=== PATIENT | female | born 1985 | race American Indian/Alaskan Native ===

== ENCOUNTER 2016-06-24 11:35 | Emergency (ER) | payer MEDICARE ==
[2016-06-24 12:32] LABS: Urine Drugs of Abuse Note Disclamer
[2016-06-24 12:39] LABS: Basophils % (Auto) 0.4 % (0.0-1.8); Eosinophils % (Auto) 2.4 % (0.0-4.3); Hematocrit 39.8 % (30.3-42.9); Hemoglobin 13.3 gm/dl (10.1-14.3); Mean Corpuscular HGB Conc 33 % (30-34); Mean Corpuscular Hemoglobin 31 pg (28-32); Mean Corpuscular Volume 92 fl (79-97); Platelet Count 262 K/mm3 (140-440); Red Blood Count 4.33 M/mm3 (3.65-5.03); Red Cell Distribution Width 13.4 % (13.2-15.2); White Blood Count 9.2 K/mm3 (4.5-11.0)
[2016-06-24 12:43] LABS: Bilirubin,Urine NEG (Negative); Blood,Urine NEG (Negative); Ketones,Urine NEG (Negative); Leukocyte Esterase,Urine LG (Negative); Mucus,Urine FEW /HPF; Nitrite,Urine NEG (Negative); Urobilinogen,Urine < 2.0 mg/dL (<2.0)
[2016-06-24 12:46] LABS: Anion Gap 19 mmol/L; Blood Urea Nitrogen 6 mg/dL (7-17); Calcium 8.6 mg/dL (8.4-10.2); Carbon Dioxide 24 mmol/L (22-30); Chloride 99.7 mmol/L (98-107); Glucose 124 mg/dL (65-100); Potassium 3.5 mmol/L (3.6-5.0); Sodium 139 mmol/L (137-145)
--- NOTE | 2016-06-24 13:36 | Emergency Department Report ---
HPI - General Chief Complaint: Psych Time Seen by Provider: 06/24/16 12:20 - HPI HPI: Chief complaint: I think that I'm HPI: Patient is 30-year-old female with a history of schizophrenia states she has been at [facility] for the last 5 days after being at [facility]. Patient states she's been nauseated and thinks that she might be . Patient has been 2 and has had one miscarriage and one . Mode of arrival: [EMS] Source: [Patient] and nursing notes Began: The last several days Duration: Several days Context: See above Quality: Mild suprapubic discomfort Severity: Mild Improved with: Nothing Worsened with: Nothing Associated signs and symptoms: See above ED Past Medical Hx - Past Medical History Previous Medical History?: Yes Hx Psychiatric Treatment: Yes (BIPOLAR) - Surgical History Past Surgical History?: No - Social History Smoking Status: Current Every Day Smoker Substance Use Type: Alcohol, Prescribed - Medications Home Medications: Home Medications Medication Instructions Recorded Confirmed Last Taken Type OXcarbazepine [Trileptal] 300 mg PO BID 02/23/16 06/24/16 02/23/16 09:00 History 300 MG Olanzapine [ZyPREXA] 20 mg PO QDAY 06/24/16 06/24/16 Unknown History lamoTRIgine [LaMICtal] 25 mg PO QDAY 06/24/16 06/24/16 Unknown History ED Review of Systems ROS: Stated complaint: SUICIDAL/PARANOID Other details as noted in HPI ROS Constitutional: No fever ENT: No uri symptoms Cardiovascular: No chest pain Respiratory: No sob or cough GI: No nausea vomiting or diarrhea : No dysuria frequency or urgency, Skin: No rash Neuro: No focal weakness or numbness Psych: Schizophrenia Roman/lymph: No edema Physical Exam - Physical Exam Vital Signs: Vital Signs 06/24/16 06/24/16 11:53 12:38 Temperature 98.8 F Pulse Rate 122 H Respiratory 20 20 Rate Blood Pressure 148/96 O2 Sat by Pulse 98 99 Oximetry Physical Exam: GENERAL: The patient is well-developed well-nourished . HEENT: Normocephalic. Atraumatic. Extraocular motions are intact. Patient has moist mucous membranes. NECK: Supple. No meningitic signs are noted. There is no adenopathy noted. CHEST/LUNGS: Clear to auscultation. There is no respiratory distress noted. HEART/CARDIOVASCULAR: Regular. There is no tachycardia. There is no gallop rub or murmur. ABDOMEN: Abdomen is soft, nontender. Patient has normal bowel sounds. There is no abdominal distention. SKIN: There is no rash. There is no edema. There is no diaphoresis. NEURO: The patient is awake, alert, and oriented. The patient is cooperative. The patient has no focal neurologic deficits. The patient has normal speech. MUSCULOSKELETAL: There is no tenderness or deformity. There is no limitation range of motion. There is no evidence of acute injury. ED Course Vital Signs 06/24/16 06/24/16 11:53 12:38 Temperature 98.8 F Pulse Rate 122 H Respiratory 20 20 Rate Blood Pressure 148/96 O2 Sat by Pulse 98 99 Oximetry ED Medical Decision Making - Lab Data Result diagrams: 06/24/16 12:13 06/24/16 12:13 Laboratory Tests 06/24/16 06/24/16 06/24/16 12:10 12:10 12:13 Urine HCG, Qual Negative Urine Opiates Screen Presumptive negative Urine Methadone Screen Presumptive negative Ur Barbiturates Screen Presumptive negative Ur Phencyclidine Scrn Presumptive negative Ur Amphetamines Screen Presumptive negative U Benzodiazepines Scrn Presumptive negative Urine Cocaine Screen Presumptive negative U Marijuana (THC) Screen Presumptive negative Plasma/Serum Alcohol < 0.01 Critical care attestation.: If time is entered above; I have spent that time in minutes in the direct care of this critically ill patient, excluding procedure time. ED Disposition Clinical Impression: Medical clearance for psychiatric admission Schizophrenia Qualifiers: Schizophrenia type: unspecified Qualified Code(s): F20.9 - Schizophrenia, unspecified Disposition: DC/TX PSY HOSP/PSY UNIT Is pt being admited?: No Does the pt Need Aspirin: No Condition: Stable Additional Instructions: Transfer back to [facility] [place] as the patient is not and continue her psychiatric care Referrals: ROWDY DE LEON MD [Primary Care Provider] - 3-5 Days Time of Disposition: 13:36
[2016-06-24 19:36] VITALS: BP 132/85
== END 2016-06-24 20:40 ==
LOC: EEVIPCON 11:35 → ED 11:35
DX: F20.9 Schizophrenia, unspecified (principal); F31.9 Bipolar disorder, unspecified; F17.200 Nicotine dependence, unspecified, uncomplicated
CPT/HCPCS: 36415; 80048; 80307; 81001; 81025; 85025; 99285; G0480; 80320

== ENCOUNTER 2016-07-19 07:08 | Emergency (ER) | payer MEDICARE ==
[2016-07-19 07:42] VITALS: BP 123/87
[2016-07-19 09:33] LABS: Bilirubin,Urine NEG (Negative); Blood,Urine NEG (Negative); Ketones,Urine 20 mg/dL (Negative); Leukocyte Esterase,Urine SM (Negative); Mucus,Urine 2+ /HPF; Nitrite,Urine NEG (Negative); Protein,Urine <15 mg/dL mg/dL (Negative); Urobilinogen,Urine < 2.0 mg/dL (<2.0)
--- NOTE | 2016-07-19 10:15 | Emergency Department Report ---
HPI - General Chief Complaint: Urogenital-Female Time Seen by Provider: 07/19/16 08:17 - HPI HPI: 30-year-old female presents today stating that she needs a Pap smear. Patient states that she was diagnosed with a UTI per primary care provider a few days ago and was not put on treatment. Patient will try to be treated for her UTI. Denies any burning upon urination, blood in her urine, increased urinary frequency or urgency, vaginal discharge. Denies fever, chills, nausea, vomiting , chest pain, shortness of breath, abdominal pain. Patient states her last menstrual period was 06/29/2016. ED Past Medical Hx - Past Medical History Previous Medical History?: Yes Hx Hypertension: No Hx Heart Attack/AMI: No Hx Congestive Heart Failure: No Hx Diabetes: No Hx Deep Vein Thrombosis: No Hx Pulmonary Embolism: No Hx Liver Disease: No Hx Renal Disease: No Hx Sickle Cell Disease: No Hx Arthritis: No Hx Seizures: No Hx Kidney Stones: No Hx Psychiatric Treatment: Yes (BIPOLAR) Hx Asthma: No Hx COPD: No Hx Tuberculosis: No Hx Dementia: No Hx HIV: No - Surgical History Hx Coronary Stent: No Hx Open Heart Surgery: No Hx Pacemaker: No Hx Internal Defibrillator: No Hx Cholecystectomy: No Hx Appendectomy: No Hx Breast Surgery: No - Social History Smoking Status: Former Smoker Substance Use Type: None - Medications Home Medications: Home Medications Medication Instructions Recorded Confirmed Last Taken Type OXcarbazepine [Trileptal] 300 mg PO BID 02/23/16 06/24/16 02/23/16 09:00 History 300 MG Olanzapine [ZyPREXA] 20 mg PO QDAY 06/24/16 06/24/16 Unknown History lamoTRIgine [LaMICtal] 25 mg PO QDAY 06/24/16 06/24/16 Unknown History Nitrofurantoin [place]/M-Cryst 100 mg PO Q12HR #10 capsule 07/19/16 Unknown Rx [Macrobid CAP] ED Review of Systems ROS: Stated complaint: POSS UTERUS CRAMPING Other details as noted in HPI Constitutional: denies: chills, fever, malaise Eyes: denies: eye pain ENT: denies: ear pain, throat pain, congestion Respiratory: denies: cough, shortness of breath, wheezing Cardiovascular: denies: chest pain, palpitations Endocrine: no symptoms reported Gastrointestinal: denies: abdominal pain, nausea, vomiting Genitourinary: denies: urgency, dysuria, frequency, hematuria, discharge Neurological: denies: headache, weakness Physical Exam - Physical Exam Vital Signs: Vital Signs 07/19/16 07:36 Temperature 98.3 F Pulse Rate 87 Respiratory 18 Rate Blood Pressure 123/87 O2 Sat by Pulse 100 Oximetry Physical Exam: GENERAL: The patient is well-developed and well-nourished. Patient is in NAD. HEAD: Normocephalic. Atraumatic. CHEST/LUNGS: Clear to auscultation throughout. HEART/CARDIOVASCULAR: Regular rate and rhythm. No murmurs, rubs or gallops. ABDOMEN: Abdomen is soft, nontender. Bowel sounds normoactive. No guarding or rebound tenderness. Negative for CVA tenderness bilaterally. EXTREMITIES: Peripheral pulses intact. Capillary refill less than 2 seconds. NEURO: Alert and oriented x 3. Normal gait. ED Course Vital Signs 07/19/16 07:36 Temperature 98.3 F Pulse Rate 87 Respiratory 18 Rate Blood Pressure 123/87 O2 Sat by Pulse 100 Oximetry ED Medical Decision Making - Lab Data Vital Signs 07/19/16 07:36 Temperature 98.3 F Pulse Rate 87 Respiratory 18 Rate Blood Pressure 123/87 O2 Sat by Pulse 100 Oximetry - Medical Decision Making 30-year-old female presents today to be treated for a UTI. Her urine test is negative and her urinalysis reveals small leukocyte esterase. Patient is requesting antibiotics to go home on. Patient is in no acute distress at this time. She will be discharged home and is encouraged to follow up with a primary care provider. She will be sent home on Macrobid and is encouraged to return to the emergency room for any worsening symptoms. Critical care attestation.: If time is entered above; I have spent that time in minutes in the direct care of this critically ill patient, excluding procedure time. ED Disposition Clinical Impression: UTI (urinary tract infection) Qualifiers: Urinary tract infection type: acute cystitis Hematuria presence: without hematuria Qualified Code(s): N30.00 - Acute cystitis without hematuria Disposition: DISCHARGED TO HOME OR SELFCARE Is pt being admited?: No Does the pt Need Aspirin: No Condition: Stable Instructions: Urinary Tract Infection in Women (ED) Additional Instructions: Follow-up with primary care provider. Return to the emergency department if symptoms worsen. Prescriptions: Nitrofurantoin [place]/M-Cryst [Macrobid CAP] 100 mg PO Q12HR #10 capsule Referrals: STAN ARTHUR MD [Primary Care Provider] - 3-5 Days GÉNESIS SYKES MD [Staff Physician] - 3-5 Days Forms: Work/School Release Form(ED) Time of Disposition: 10:17
== END 2016-07-19 10:26 | disposition home or self-care (01) ==
LOC: ED 07:08
DX: N30.00 Acute cystitis without hematuria (principal); N39.0 Urinary tract infection, site not specified; F31.9 Bipolar disorder, unspecified; Z87.891 Personal history of nicotine dependence
CPT/HCPCS: 81001; 81025; 99283

== ENCOUNTER 2016-07-19 21:35 | Emergency (ER) | payer MEDICARE ==
[2016-07-19 22:43] LABS: Basophils % (Auto) 0.3 % (0.0-1.8); Eosinophils % (Auto) 2.5 % (0.0-4.3); Hematocrit 41.6 % (30.3-42.9); Hemoglobin 13.8 gm/dl (10.1-14.3); Mean Corpuscular HGB Conc 33 % (30-34); Mean Corpuscular Hemoglobin 31 pg (28-32); Mean Corpuscular Volume 93 fl (79-97); Platelet Count 274 K/mm3 (140-440); Red Blood Count 4.48 M/mm3 (3.65-5.03); Red Cell Distribution Width 13.3 % (13.2-15.2); White Blood Count 13.4 K/mm3 (4.5-11.0)
[2016-07-19 22:45] LABS: Alanine Aminotransferase 14 units/L (7-56); Albumin 4.1 g/dL (3.9-5); Albumin/Globulin Ratio 1.1 %; Alkaline Phosphatase 111 units/L (35-129); Anion Gap 20 mmol/L; Bilirubin,Total 0.4 mg/dL (0.1-1.2); Blood Urea Nitrogen 7 mg/dL (7-17); Calcium 8.9 mg/dL (8.4-10.2); Carbon Dioxide 22 mmol/L (22-30); Chloride 99.4 mmol/L (98-107); Glucose 104 mg/dL (65-100); Sodium 137 mmol/L (137-145)
[2016-07-19 23:20] LABS: Urine Drugs of Abuse Note Disclamer
--- NOTE | 2016-07-19 23:33 | Emergency Department Report ---
HPI - General Chief Complaint: Medical Clearance Time Seen by Provider: 07/19/16 22:08 - HPI HPI: This is a 30-year-old -Azerbaij[place] female presents to the emergency department by EMS with complaint of insomnia and medication noncompliance. The patient has a history of bipolar schizoaffective. The patient complains of insomnia saying that she has not had any sleep over the past 2 days. She says that she normally is on Lamictal, trazodone, Geodon and Seroquel but has not been able to take them cut she has run out. The patient was recently at a hospital for her psychiatric symptoms and then [facility]. [place] to bring her here for further evaluation. The nurse called over to the lodge and spoke with the person who is in charge and says that this patient has been eloping from there over the past few days and has been found around the city just wandering around. She currently denies any suicidal or homicidal ideations or any auditory or visual hallucinations. 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 - Surgical History Hx Coronary Stent: No Hx Open Heart Surgery: No Hx Pacemaker: No Hx Internal Defibrillator: No Hx Cholecystectomy: No Hx Appendectomy: No Hx Breast Surgery: No - Social History Smoking Status: Never Smoker - Medications Home Medications: Home Medications Medication Instructions Recorded Confirmed Last Taken Type OXcarbazepine [Trileptal] 300 mg PO BID 02/23/16 07/19/16 02/23/16 09:00 History 300 MG Olanzapine [ZyPREXA] 20 mg PO QDAY 06/24/16 07/19/16 Unknown History lamoTRIgine [LaMICtal] 25 mg PO QDAY 06/24/16 07/19/16 Unknown History ED Review of Systems ROS: Stated complaint: MH EVAL Other details as noted in HPI Comment: All other systems reviewed and negative Constitutional: denies: chills, fever Eyes: denies: eye pain, eye discharge, vision change ENT: denies: ear pain, throat pain Respiratory: denies: cough, shortness of breath, wheezing Cardiovascular: denies: chest pain, palpitations Gastrointestinal: denies: abdominal pain, nausea, diarrhea Genitourinary: denies: urgency, dysuria, discharge Musculoskeletal: denies: back pain, joint swelling, arthralgia Skin: denies: rash, lesions Neurological: denies: headache, weakness, paresthesias Psychiatric: denies: auditory hallucinations, visual hallucinations, homicidal thoughts, suicidal thoughts Physical Exam - Physical Exam Vital Signs: Vital Signs 07/19/16 22:07 Temperature 97.8 F Pulse Rate 94 H Respiratory 18 Rate Blood Pressure 118/79 [Left] O2 Sat by Pulse 98 Oximetry Physical Exam: GENERAL: The patient is well-developed well-nourished. HEENT: Normocephalic. Atraumatic. Extraocular motions are intact. Patient has moist mucous membranes. Pupils equal reactive to light bilaterally. NECK: Supple. Trachea is midline. CHEST/LUNGS: Clear to auscultation. There is no respiratory distress noted. HEART/CARDIOVASCULAR: Regular. There is no tachycardia. There is no gallop rub or murmur. ABDOMEN: Abdomen is soft, nontender. Patient has normal bowel sounds. There is no abdominal distention. SKIN: There is no rash. There is no edema. There is no diaphoresis. NEURO: The patient is awake, alert, and oriented. The patient is cooperative. The patient has no focal neurologic deficits. The patient has normal speech. Cranial nerves II through XII grossly intact. MUSCULOSKELETAL: There is no tenderness or deformity. There is no limitation range of motion. There is no evidence of acute injury. ED Course Vital Signs 07/19/16 22:07 Temperature 97.8 F Pulse Rate 94 H Respiratory 18 Rate Blood Pressure 118/79 [Left] O2 Sat by Pulse 98 Oximetry ED Medical Decision Making - Lab Data Result diagrams: 07/19/16 22:13 07/19/16 22:13 - Medical Decision Making This is a 30-year-old Afro-Azerbaijani female presents to the emergency department with complaint of a 2 day history of insomnia. The patient also makes him claims that she has some type of aggressive growth in her gums, which cannot be seen at the current time, as well as some other issues going on in her brain. However the patient appears to be neurologically intact without any focal, motor or sensory deficits. She has cranial nerves intact. The patient had a CT of the brain here on February 2016 and there was no bleed, shift, mass or any acute intracranial process at that time. The patient becomes aggressive when asked for blood her urine for evaluation. The patient also fails to mention that she is already been through the [facility] emergency department this morning with complaints of a possible urinary tract infection. We were able to find out that the patient was recently at [facility] and then was at the [facility] but she has been eloping each day and has been noncompliant with her medications because she is a voluntary admission at this point and they have no way to force her to take her medications. She appears to be digressing due to medication noncompliance. I have decided to make the patient a 1013 because of this as she appears to be having some signs of psychosis and showing delusions and I do not believe that the patient is fully capable of taking care of herself at this point as [facility]. The patient's labs and mostly unremarkable. There is no sign of any significant urinary tract infection. The patient is not . UDS is negative. Blood occult levels negative. The patient is medically cleared for psychiatric placement and the crisis therapist will help assist with placement. - Differential Diagnosis schizophrenia, bipolar disorder, psychosis, delusional disorder Critical Care Time: No Critical care attestation.: If time is entered above; I have spent that time in minutes in the direct care of this critically ill patient, excluding procedure time. ED Disposition Clinical Impression: Delusions Schizophrenia Qualifiers: Schizophrenia type: unspecified Qualified Code(s): F20.9 - Schizophrenia, unspecified Psychosis Qualifiers: Psychosis type: unspecified psychosis type Qualified Code(s): F29 - Unspecified psychosis not due to a substance or known physiological condition Disposition: DC/TX PSY HOSP/PSY UNIT Is pt being admited?: No Condition: Stable Referrals: PRIMARY CARE [Primary Care Provider] - 3-5 Days Time of Disposition: 01:31
[2016-07-19 23:55] LABS: Bilirubin,Urine NEG (Negative); Blood,Urine NEG (Negative); Ketones,Urine 20 mg/dL (Negative); Leukocyte Esterase,Urine SM (Negative); Mucus,Urine 3+ /HPF; Nitrite,Urine NEG (Negative)
--- NOTE | 2016-07-20 08:44 | Consultation ---
History of Present Illness - Reason for Consult Consult date: 07/20/16 Reason for consult: Psychiatric Eval Requesting physician: ERIKA HOYOS - Chief Complaint Chief complaint: "My mind is cloudy" - History of Present Psychiatric Illness This is a 30-year-old -Indonesian female presents to the emergency department by EMS with complaint of insomnia and medication noncompliance. The patient has a history of bipolar schizoaffective. Upon arrival to patient's room , she was eating and watching TV. I asked her to elaborate on the event that brought her to [facility]. She stated that she was in the [facility] program 2 days ago and became disoriented and felt sick. After asking more questions, she stated "I remember, I was at a grocery store and asked for help." Ultimately she ended up at [facility]. Patient is disorganized with her thoughts, had to be redirected during the interview, and disheveled. She stated being homeless and off her medications for 2+ days. Patient acknowledged that she takes Trileptal, Zyprexa, and Lamictal. Medications and Allergies Allergies Allergy/AdvReac Type Severity Reaction Status Date / Time No Known Allergies Allergy Unverified 12/19/15 02:24 Home Medications Medication Instructions Recorded Confirmed Last Taken Type OXcarbazepine [Trileptal] 300 mg PO BID 02/23/16 07/19/16 02/23/16 09:00 History 300 MG Olanzapine [ZyPREXA] 20 mg PO QDAY 06/24/16 07/19/16 Unknown History lamoTRIgine [LaMICtal] 25 mg PO QDAY 06/24/16 07/19/16 Unknown History Past psychiatric history - Past Medical History Past Medical History: No medical history Past Surgical History: No surgical history - past Psychiatric treatment and history Psych: Bipolar, Schizophrenia psychiatric treatment history: Prior Inpatient and PHP admission in the past. Most recent [facility]. Patient denies a family psy hx. - Social History Social history: other (High School graduate, 1 child) Mental Status Exam - Vital signs Last Vital Signs Temp 97.8 F 07/19/16 22:07 Pulse 94 H 07/19/16 22:07 Resp 18 07/19/16 22:07 BP 118/79 07/19/16 22:07 Pulse Ox 98 07/19/16 22:07 - Exam Narrative exam: (+) disorganized, (-) delusions Orientation: time, place, person Affect: flat Mood: other ("My head is cloudy") Thought content: other (none) Thought Process: Circumstantial Perceptions: none Speech: other (Low) Concentration: distractible Motor activity: other (Lying in bed) Level of consciousness: alert Memory: Recent Impaired, Remote Impaired Sleep Symptoms: Insomnia Interaction: cooperative Results Result Diagrams: 07/19/16 22:13 07/19/16 22:13 Abnormal lab results 07/19/16 07/19/16 07/19/16 Range/Units 22:13 22:13 23:19 WBC 13.4 H (4.5-11.0) K/mm3 Seg Neutrophils % 76.6 H (40.0-70.0) % Seg Neutrophils # 10.3 H (1.8-7.7) K/mm3 Glucose 104 H (65-100) mg/dL Ur Specific [place] 1.034 H (1.003-1.030) Urine WBC (Auto) 10.0 H (0.0-6.0) /HPF U Epithel Cells (Auto) 21.0 H (0-13.0) /HPF All other labs normal. Assessment and Plan Assessment and plan: Impression: Patient has a hx of schizaffective disorder. She is disorganized at this time and medication non-adherence for the past 2 days. Plan: Continue 1013 and pending placement to inpatient psychiatric services..
[2016-07-20 14:02] VITALS: BP 116/75
--- NOTE | 2016-07-21 05:48 | Event Note ---
Date: 07/21/16 vital signs reviewed and appreciated. patient awaiting psychiatric placement psych consult appreciated Vital Signs 07/19/16 07/20/16 22:07 10:00 Temperature 97.8 F 98.2 F Pulse Rate 94 H 90 Respiratory 18 16 Rate Blood Pressure 118/79 116/75 [Left] O2 Sat by Pulse 98 99 Oximetry
== END 2016-07-20 19:30 ==
LOC: ED 21:35 → EEVIPCON 21:35 → ED 07-20 19:30
DX: F22 Delusional disorders (principal); F20.9 Schizophrenia, unspecified; F29 Unspecified psychosis not due to a substance or known physiological condition; F31.9 Bipolar disorder, unspecified
CPT/HCPCS: 36415; 80053; 80307; 81001; 84703; 85025; 99285; G0480; 80320

== ENCOUNTER 2016-07-30 20:32 | Emergency (ER) | payer MEDICARE ==
--- NOTE | 2016-07-31 02:16 | Emergency Department Report ---
HPI - General Chief Complaint: Upper Respiratory Infection Time Seen by Provider: 07/31/16 02:12 - HPI HPI: 30-year-old -[place] female with a past medical history of bipolar and cancer in the mouth comes in today for nasal congestion with cough 6 days. Patient denies any fever no chills no nausea no vomiting. Patient reports that she had a cold about a week ago and now she is has a cough and nasal congestion. 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 - Surgical History Hx Coronary Stent: No Hx Open Heart Surgery: No Hx Pacemaker: No Hx Internal Defibrillator: No Hx Cholecystectomy: No Hx Appendectomy: No Hx Breast Surgery: No - Social History Smoking Status: Current Every Day Smoker Substance Use Type: Alcohol - Medications Home Medications: Home Medications Medication Instructions Recorded Confirmed Last Taken Type OXcarbazepine [Trileptal] 300 mg PO BID 02/23/16 07/19/16 02/23/16 09:00 History 300 MG Olanzapine [ZyPREXA] 20 mg PO QDAY 06/24/16 07/19/16 Unknown History lamoTRIgine [LaMICtal] 25 mg PO QDAY 06/24/16 07/19/16 Unknown History Fluticasone [Flonase] 1 spray NS QDAY #1 bottle 07/31/16 Unknown Rx Loratadine/Pseudoephedrine 1 tab PO Q12H #60 tablet 07/31/16 Unknown Rx [Claritin-D 12HR] ED Review of Systems ROS: Stated complaint: CONGESTION Other details as noted in HPI Physical Exam - Physical Exam Vital Signs: Vital Signs 07/30/16 21:23 Temperature 98.6 F Pulse Rate 94 H Respiratory 20 Rate Blood Pressure 114/76 [Right] O2 Sat by Pulse 100 Oximetry Physical Exam: GENERAL: Alert and oriented x3, no apparent distress, Normal Gait, atraumatic. Very pleasant and smiling HEAD: Head is normocephalic and a-traumatic. EYES: Extra ocular muscles are intact. Pupils are equal, round, and reactive to light and accommodation. EARS: symetrical, atraumatic, non tender, ear canal clear and moderate cerumen, tympanic membrance non inflamed. gross auditory nml bilaterally. NOSE: Nose symetrical, Nontender,Nares appeared normal. Lateral nares with swollen turbinates no maxillary or frontal tenderness MOUTH:Mouth is well hydrated and without lesions. Tonsils nonerythematous or swollen, Uvula midline, Tongue not elevated. Mucous membranes are moist. Posterior pharynx clear, no exudate or lesions. Patent airways. NECK: Supple. Non edematous, No carotid bruits. No lymphadenopathy or thyromegaly. LUNGS: Symetrical with respiration, No wheezing, no rales or crackles, CTAB. HEART: S1, S2 present, regular rate and rhythm without murmur, no rubs, no gallops. NEUROLOGIC: No focal Deficit, Cranial nerves II through XII are grossly intact. No loss of sensation, No facial droop, Negative rhomberg. PSYCHIATRIC: Mood is congruent with affect, denies suicidal or homicidal ideations. SKIN: Warm and dry, No lesions, No ulceration or induration present ED Course Vital Signs 07/30/16 21:23 Temperature 98.6 F Pulse Rate 94 H Respiratory 20 Rate Blood Pressure 114/76 [Right] O2 Sat by Pulse 100 Oximetry ED Medical Decision Making - Medical Decision Making Assessment evaluated by this provider fast track. Discussed with patient that she most likely has allergies and that we would discharge her in Claritin and Flonase. SHe will need to follow with the primary care provider. Patient verbalized understanding. Critical care attestation.: If time is entered above; I have spent that time in minutes in the direct care of this critically ill patient, excluding procedure time. ED Disposition Clinical Impression: Seasonal allergic rhinitis Disposition: DISCHARGED TO HOME OR SELFCARE Is pt being admited?: No Does the pt Need Aspirin: No Condition: Stable Instructions: Allergies (ED) Additional Instructions: Take medication as prescribed. Follow-up with her primary care provider. Prescriptions: Fluticasone [Flonase] 1 spray NS QDAY #1 bottle Loratadine/Pseudoephedrine [Claritin-D 12HR] 1 tab PO Q12H #60 tablet Referrals: DOC HINES [Other] - 3-5 Days Forms: Work/School Release Form(ED), Accompanied Note
[2016-07-31 02:26] VITALS: BP 125/86
== END 2016-07-31 02:27 | disposition home or self-care (01) ==
LOC: ED 20:32
DX: J30.2 Other seasonal allergic rhinitis (principal); F31.9 Bipolar disorder, unspecified; F17.200 Nicotine dependence, unspecified, uncomplicated; Z85.818 Personal history of malignant neoplasm of other sites of lip, oral cavity, and pharynx
CPT/HCPCS: 99282

== ENCOUNTER 2016-08-01 02:37 | Emergency (ER) | payer MEDICARE | END 2016-08-01 02:49 | disposition left against medical advice (07) | LOC: ED 02:37 | DX: Z04.1 Encounter for examination and observation following transport accident (principal); V89.2XXA Person injured in unspecified motor-vehicle accident, traffic, initial encounter; Y93.89 Activity, other specified; Y99.9 Unspecified external cause status; Y92.89 Other specified places as the place of occurrence of the external cause; Z53.21 Procedure and treatment not carried out due to patient leaving prior to being seen by health care provider ==

== ENCOUNTER 2016-08-01 09:33 | Emergency (ER) | payer MEDICARE ==
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
[2016-08-01 14:32] LABS: Hemoglobin 14.3 gm/dl (10.1-14.3); Mean Corpuscular HGB Conc 33 % (30-34); Mean Corpuscular Hemoglobin 31 pg (28-32); Mean Corpuscular Volume 92 fl (79-97); Platelet Count 289 K/mm3 (140-440); Red Blood Count 4.67 M/mm3 (3.65-5.03); Red Cell Distribution Width 13.1 % (13.2-15.2); White Blood Count 12.2 K/mm3 (4.5-11.0)
[2016-08-01 14:47] LABS: Anion Gap 15 mmol/L; BUN/Creatinine Ratio 8.57; Blood Urea Nitrogen 6 mg/dL (7-17); Carbon Dioxide 24 mmol/L (22-30); Chloride 100.2 mmol/L (98-107); Glucose 97 mg/dL (65-100); Potassium 4.2 mmol/L (3.6-5.0); Sodium 135 mmol/L (137-145)
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
[2016-08-01 18:28] LABS: Urine Drugs of Abuse Note Disclamer
[2016-08-01 18:29] LABS: Anisocytosis 1+; Basophils % (Manual) 0 % (0.0-1.8); Blastocytes % (Manual) 0 %; Macrocytosis Few
[2016-08-01 18:30] LABS: Diff Status Complete; Platelet Estimate Consistent w Auto
[2016-08-01 18:53] LABS: Bacteria,Urine 1+ /HPF (Negative); Bilirubin,Urine NEG (Negative); Blood,Urine NEG (Negative); Ketones,Urine TR mg/dL (Negative); Leukocyte Esterase,Urine SM (Negative); Mucus,Urine 3+ /HPF; Nitrite,Urine NEG (Negative); Protein,Urine <15 mg/dL mg/dL (Negative); Urobilinogen,Urine < 2.0 mg/dL (<2.0)
[2016-08-02] MEDS: LaMICtal PO SCH (09:56)
[2016-08-02] MEDS ORDERED: NON-FORMULARY (Olanzapine [Zyprexa] 20 MG) PO SCH (10:00)
[2016-08-03] MEDS: TRILEPTAL PO SCH ×4 (09:46→23:18)
[2016-08-03] MEDS: LaMICtal PO SCH (10:03)
--- NOTE | 2016-08-03 19:51 | Consultation ---
History of Present Illness - Reason for Consult Consult date: 08/03/16 Reason for consult: Mental Health Evaluation Requesting physician: HERON WOODS - Chief Complaint Chief complaint: "I have no place to live" - History of Present Psychiatric Illness 30-year-old female with a past medical history of bipolar and schizoaffective disorder presents to the hospital with complaints of headache and sore throat. Today patient was calm, but disorganized during assessment. She is disheveled was circumstantial thoughts during our discussion. She states that she was discharged from [facility] and went to the [facility] to seek half-way a couple days ago. She stated that she is currently homeless. She left [facility] and went to [facility] to fill a prescription and was put out by security. She could not elaborate more about the [facility] incident. She denies SI/HI or AVH's at this time. She stated she came to [facility] to get treated for laryngitis. Medications and Allergies Allergies Allergy/AdvReac Type Severity Reaction Status Date / Time No Known Allergies Allergy Unverified 12/19/15 02:24 Home Medications Medication Instructions Recorded Confirmed Last Taken Type Benztropine [Cogentin] 1 mg PO BID 08/02/16 08/02/16 Unknown History Ziprasidone HCl [Geodon] 80 mg PO BID 08/02/16 08/02/16 Unknown History clonazePAM 0.5 mg PO BID 08/02/16 08/02/16 Unknown History diphenhydrAMINE [Benadryl CAP] 50 mg PO QHS 08/02/16 08/02/16 Unknown History lamoTRIgine [LaMICtal] 50 mg PO QA 08/02/16 08/02/16 Unknown History lamoTRIgine [LaMICtal] 150 mg PO QHS 08/02/16 08/02/16 Unknown History Active Meds: Active Medications Lamotrigine (Lamictal) 25 mg PO QDAY [facility] Last Admin: 08/03/16 10:03 Dose: 25 mg Olanzapine (Zyprexa) 20 mg PO DAILY [facility] Last Admin: 08/03/16 10:03 Dose: 20 mg Oxcarbazepine (Trileptal) 300 mg PO BID [facility] Last Admin: 08/03/16 10:03 Dose: 300 mg Past psychiatric history - Past Medical History Past Surgical History: No surgical history - past Psychiatric treatment and history Psych: Bipolar, Schizophrenia (Homeless) psychiatric treatment history: Multiple inpatient setting. Denies family psy hx.. Mental Status Exam - Vital signs Last Vital Signs Temp 98.3 F 08/03/16 08:29 Pulse 78 08/03/16 08:29 Resp 20 08/03/16 19:33 BP 109/83 08/03/16 08:29 Pulse Ox 99 08/03/16 08:30 - Exam Narrative exam: ROS (-) delusional, (-) disorganized Orientation: time, place, person Affect: flat Mood: appropriate Thought content: delusions Thought Process: Circumstantial Perceptions: none Speech: normal rate and pattern Concentration: distractible Motor activity: other (ambulatory) Level of consciousness: other (Lucid) Memory: Intact Sleep Symptoms: None Interaction: cooperative Results Result Diagrams: 08/01/16 14:02 08/01/16 14:02 All other labs normal. Assessment and Plan Assessment and plan: Impression: Patient has an hx of Schizoaffective Disorder. She was delusional and disorganized in her thoughts. She denies SI/HI or AVH's at this time. Patient has had multiple admissions to [facility] for mental health instability. Recommendation/Plan: Continue 1013 with possible placement to inpatient or [facility]. Continue current psy medication treatment. Discussed with patient possible metabolic side effects from antipsychotics. Also, we discussed possible rash side effect from lamictal.
[2016-08-04] MEDS: TRILEPTAL PO SCH ×2 (10:14→23:11)
[2016-08-04] MEDS: LaMICtal PO SCH (10:14)
--- NOTE | 2016-08-04 11:06 | Progress Note ---
Subjective - Reason for Consult Consult date: 08/04/16 Reason for consult: Psychiatry Follow-up - Chief Complaint Chief complaint: "I have no place to live" 30-year-old female with a past medical history of bipolar and schizoaffective disorder presents to the hospital with complaints of headache and sore throat. Today patient denies having a laryngitis at this time. She was able to tell me what happened at [facility] (across from [facility]) pertaining to her coming to [facility]. She states that she went to [facility] to fill a prescription and the staff allowed her to sit in the pharmacy area because she had where to go. After a couple hours, she was asked to leave per security. She stated that she felt like she had a soar throat and came to [facility]. Patient is currently homeless at this time. She denies SI/HI or AVH's at this time. Mental Status Exam - Vital signs Last Vital Signs Temp 97.8 F 08/04/16 07:35 Pulse 64 08/04/16 07:35 Resp 18 08/04/16 07:35 BP 133/99 08/04/16 07:35 Pulse Ox 100 08/04/16 07:35 - Exam Orientation: time, place, person Mood: appropriate Thought content: other (none) Thought Process: Intact Perceptions: none Speech: normal rate and pattern Concentration: other (intact) Motor activity: other (sitting up in bed) Level of consciousness: alert Memory: Intact Sleep Symptoms: None Interaction: cooperative, pleasant Assessment and Plan Impression: Patient has an hx of Schizoaffective Disorder. She presents with a linear thought process today. She denies SI/HI or AVH's at this time. Patient has had multiple admissions to [facility] for mental health instability. She is currently homeless at this time. I believe patient came to [facility] because she is familiar with this facility. Recommendation/Plan: Rescind 1013 with placement to shelter. Pending placement because she is homeless. Continue current psy medication treatment. Discussed with patient possible metabolic side effects from antipsychotics. Also , we discussed possible rash side effect from lamictal.
[2016-08-05 09:08] VITALS: BP 119/83
[2016-08-05] MEDS: LaMICtal PO SCH (10:21)
[2016-08-05] MEDS: TRILEPTAL PO SCH (14:42)
== END 2016-08-05 16:15 ==
LOC: ED 09:33 → EEVIPCON 09:33 → ED 08-05 16:15
DX: F29 Unspecified psychosis not due to a substance or known physiological condition (principal); F22 Delusional disorders; F20.9 Schizophrenia, unspecified; F31.9 Bipolar disorder, unspecified; F17.200 Nicotine dependence, unspecified, uncomplicated
CPT/HCPCS: 36415; 80048; 80307; 81001; 81025; 84443; 85007; 85025; 99285; G0480; 80320